=== PATIENT | male | born 1955 | race Caucasian/White ===

== ENCOUNTER → 2016-09-08 | Outpatient (CLI) | payer OTHER ==
--- NOTE | 2016-09-08 11:11 | KCIC ---
PROCEDURE MRI cervical spine without contrast. HISTORY Neuropathy, right arm and hand numbness, left arm shooting pain, previous neck injury, pain into the shoulder blades TECHNIQUE Multiplanar, multi sequential, non contrast MR imaging was performed of the cervical spine. COMPARISON None FINDINGS There is motion degradation, even for repeated images. Cervical vertebral body stature and AP alignment are maintained. Intervertebral disc spaces are adequate. Cervical cord caliber is within normal limits, no expansile signal change of the cervical cord, limited evaluation for subtle signal change due to motion. However there is appearance of increased T2 and STIR signal abnormality of the visualized superior thoracic cord at the T1 and T2 levels. There is no significant abnormality of the cervical medullary junction. There is somewhat diffuse narrowing of the cervical spinal canal on a developmental basis. C2-C3: There is no additional spinal stenosis, central canal 10 millimeters on developmental basis. Neural foramina are adequate. C3-4: There is minimal posterior bulge. Central canal is narrowed to approximately 7 millimeters. There may be mild narrowing of the right neural foramen, left neural foramen not convincing narrowed. C4-5: Central canal is minimally narrowed to 8-9 millimeters on developmental basis. Neural foramina are adequate. C5-6: There is a minimal posterior bulge somewhat greater in the right lateral recess. Central canal is narrowed to approximately 8 millimeters also with mild right lateral recess stenosis. Neural foramina are adequate. C6-7: Central canal is adequate 11 millimeters. There may be mild narrowing of the right neural foramen by minimal uncovertebral degenerative change, left neural foramen not significantly narrowed. C7-T1: Central canal is adequate. There is suspected moderate to severe narrowing of the right neural foramen mostly from facet degenerative change. IMPRESSION 1. There is somewhat diffuse narrowing of the cervical spinal canal on a developmental basis, additional narrowing on the order of 7 millimeters at C3-4 and to a lesser degree at C4-5 and C5-C6. 2. Accurate evaluation of neural foramina is somewhat limited due to motion, moderate to severe narrowing of the right C7-T1 neural foramen mostly from facet degenerative change. 3. There is suggestion of increased T2 and STIR signal abnormality of the visualized central aspect of the superior thoracic cord at T1 and T2. It is uncertain if this is a true finding given motion artifact, consideration of demyelination or syringohydromyelia if a true finding. Electronically signed by: Hollis Miner MD (September 08, 2016 11:09:35)
--- NOTE | 2016-09-08 11:30 | KCIC ---
PROCEDURE MRI lumbar spine without contrast. HISTORY Neuropathy, low back pain greater with standing and sitting, pain into the left hip TECHNIQUE Multiplanar, multi sequential non contrast MR imaging was performed of the lumbar spine. COMPARISON None FINDINGS There is motion degradation. There appears to be transitional anatomy of the lumbar spine. For the purpose of this report, the most inferior formed although rudimentary intervertebral disc space is considered L5-S1, most inferior fully formed intervertebral disc space considered L4-5. Conus terminates at L1. There is mild to moderate degenerative disc disease at what is considered L2-3, minimally at L3-4 and L4-5. Lumbar vertebral body stature and AP alignment are maintained. L2-3: There is mild prominence of posterior epidural fat, mild facet hypertrophic change, and very mild buckling of the ligamentum flavum. There is disc osteophyte complex, superimposed bulge and also apparently a superimposed protrusion more eccentric to the far right lateral recess. Combination of findings results in overall mild spinal stenosis with narrowing of the lateral recesses bilaterally greater on the right. Disc osteophyte complex contributes to moderate right and mild left neural foramina compromise. Disc osteophyte complex also contacts the proximal extraforaminal right L2 nerve root. L3-4: There is moderate right and mild left facet degenerative change. There is prominence of posterior epidural fat, mild buckling of the ligamentum flavum. There is minimal posterior disc osteophyte complex and bulge. There is mild narrowing of the far lateral recesses bilaterally somewhat greater on the right, mild attenuation of the central canal from posteriorly by epidural lipomatosis. There is moderate right and mild to moderate left neural foramina compromise. L4-5: There is moderate to severe, left greater than right facet degenerative change. There is mild to moderate buckling of the ligamentum flavum. There is posterior disc osteophyte complex with superimposed bulge. Combination of findings results in moderate right and mild left lateral recess stenosis, also mild attenuation of the thecal sac more centrally. There is cyst posterior to the left paracentral lamina on the order of 1.1 centimeter in size. Disc osteophyte complex contributes to moderate to severe, left greater than right neural foramina compromise. L5-S1: Spinal canal and the neural foramina are adequate. IMPRESSION 1. There is transitional anatomy of the lumbar spine. For the purpose of this report, the most inferior formed although rudimentary intervertebral disc space is considered L5-S1, most inferior fully formed intervertebral disc space considered L4-5. 2. There is mild to moderate degenerative disc disease at what is considered L2-3, to a lesser degree at L3-4 and L4-5. There is multilevel spondylosis. 3. There is moderate right lateral recess stenosis at L4-5, other mild lateral recess stenosis on the left at L4-5 and bilaterally at L3-4 and L2-3. 4. There is moderate to severe neural foramina compromise bilaterally at L4-5, somewhat lesser degree of narrowing bilaterally at L3-4 and L2-3. 5. There is multilevel lumbar facet degenerative change. Electronically signed by: Hollis Miner MD (September 08, 2016 11:29:53)
== END | disposition home or self-care (01) ==
LOC: KCIC MRI 09:18
PROVIDERS: ATTEND Nurse Practitioner Adult Health
DX: M51.36 Other intervertebral disc degeneration, lumbar region (principal); M48.06 Spinal stenosis, lumbar region
CPT/HCPCS: 72141; 72148

== ENCOUNTER → 2017-02-13 | Outpatient (CLI) | payer OTHER ==
--- NOTE | 2017-02-13 13:20 | KCIC ---
MRI of the brain without contrast 02/13/2017 Clinical History: Epilepsy. Right arm and right hand numbness. Technique: Unenhanced T1-weighted sagittal and axial, T2-weighted axial and coronal and FLAIR, gradient echo and diffusion-weighted axial images of the brain were obtained. Additionally thin section T2-weighted and FLAIR coronal images through the temporal lobes were obtained. Findings: Comparison is made to a CT scan of the head dated 08/12/2014. There is generalized parenchymal atrophy. Patchy, confluent and multiple small focal areas of increased signal intensity are seen within the periventricular and subcortical white matter of both cerebral hemispheres on the FLAIR and T2-weighted images consistent with areas of small vessel ischemic disease. No acute parenchymal abnormality is seen. No extra-axial fluid collection is seen. There is no MRI evidence of acute ischemia/infarction. Images through the temporal lobes are within normal limits. Mild mucosal thickening is seen scattered throughout the paranasal sinuses. There are minimal bilateral mastoid effusions Normal flow voids are seen within the major vascular structures surrounding the brain parenchyma. Impression: No acute parenchymal abnormality is seen. Electronically signed by: Mukesh Heart MD (02/13/2017 1:17 PM) [id number]
== END | disposition home or self-care (01) ==
LOC: KCIC MRI 10:43
DX: G40.909 Epilepsy, unspecified, not intractable, without status epilepticus (principal); R90.82 White matter disease, unspecified; R20.0 Anesthesia of skin
CPT/HCPCS: 70551